=== PATIENT | female | born 1950 | race Two or more races ===

== ENCOUNTER 2016-07-25 10:43 | Inpatient (IN) ==
[2016-07-25] MEDS ORDERED: DUONEB NEB STA ×2 (12:31→13:42)
[2016-07-25] MEDS ORDERED: SOLU-MEDROL 125 MG IVP STA (12:33)
[2016-07-25 13:00] LABS: ABG PH 7.555 (7.35-7.45)
[2016-07-25 13:01] LABS: ABG BASE EXCESS 4 (-2.0-2.0); ABG HCO3 25.9 (22.0-26.0); ABG PCO2 29.3 mmHg (35-45); ABG TCO2 27 (22.0-28.0)
[2016-07-25 13:25] LABS: BASOPHILS % (AUTO) 0.5 % (0.0-3.0); EOSINOPHILS # (AUTO) 0.1 K/ul (0.0-0.7); EOSINOPHILS % (AUTO) 1.2 % (0.0-7.0); HEMATOCRIT 35.1 % (37.0-47.0); HEMOGLOBIN 11.9 g/dl (12.0-16.0); LYMPHOCYTES # (AUTO) 1.9 K/uL (0.60-3.4); LYMPHOCYTES % (AUTO) 46.9 (10.0-50.0); MEAN CORPUSCULAR HEMOGLOBIN 29.6 pg (27.0-31.0); MEAN CORPUSCULAR HGB CONC 33.9 (31.8-35.4); MEAN CORPUSCULAR VOLUME 87.3 fl (81.0-99.0); MONOCYTES # (AUTO) 0.4 K/uL (0.4-2.0); MONOCYTES % (AUTO) 10.2 (0-10); NEUTROPHILS # (AUTO) 1.7 K/ul (2.0-6.9); NEUTROPHILS % (AUTO) 41.2; PLATELET COUNT 184 10^3/uL (140-440); RED BLOOD COUNT 4.02 10^6/ul (4.20-5.40); WHITE BLOOD COUNT 4.01 K/ul (4.6-10.2)
--- NOTE | 2016-07-25 13:42 | CT ---
EXAM: CT chest without contrast HISTORY: Cough COMPARISON: CT chest 07/28/2013 TECHNIQUE: Serial axial images of the chest were obtained from the lung apices to the upper abdomen without contrast. These were viewed in multiple planes. FINDINGS: The thyroid is normal. The visualized vessels are unremarkable without aneurysm or steno sis. The heart is normal in size without pericardial effusion. There are no pathologically enlarge d mediastinal or hilar lymph nodes. There is no pneumothorax or pleural effusion. There is no consolidation, nodule or mass. The airwa ys are patent. There is no abnormal ground-glass. The soft tissues in the upper abdomen demonstrate prior cholecystectomy. Limited views of the soft tissues in the upper abdomen are unremarkable. There is mild degenerative disease of the spine. IMPRESSION: No acute cardiopulmonary process to account for patient's symptoms.
[2016-07-25] MEDS ORDERED: DECADRON 4 MG/ML SDV IM STA (13:46)
[2016-07-25 13:51] LABS: ALANINE AMINOTRANSFERASE 57 U/L (12-78); ALBUMIN 3.5 g/dL (3.4-5.0); ALBUMIN/GLOBULIN RATIO 1.03; ALKALINE PHOSPHATASE 100 U/L (53-141); ANION GAP 13.6; ASPARTATE AMINO TRANSFERASE 42 U/L (15-37); BILIRUBIN,TOTAL 0.33 mg/dL (0.00-1.20); BLOOD UREA NITROGEN 12 mg/dL (7-18); BUN/CREATININE RATIO 18.46; CALCIUM 8.4 mg/dL (8.2-10.2); CARBON DIOXIDE 23 mmol/L (23-31); CHLORIDE 110 mmol/L (98-107); CREATINE KINASE 21 U/L; CREATININE 0.65 mg/dL (0.60-1.30); GLUCOSE 93 mg/dL (82-115); POTASSIUM 3.6 mmol/L (3.5-5.10); SODIUM 143 mmol/L (136-145); TOTAL PROTEIN 6.9 g/dL (5.8-8.1)
[2016-07-25 14:11] LABS: FLU INTERNAL QC INTERNAL QC VALID; RAPID FLU A NEGATIVE (NEGATIVE); RAPID FLU B NEGATIVE (NEGATIVE)
--- NOTE | 2016-07-25 15:08 | ED.PDOC ---
General ED Provider: Dr. ALLA VERONICA Chief Complaint: Shortness of Air Stated Complaint: short of air Time Seen by Physician: 10:45 Mode of Arrival: Walk-In Information Source: Patient Exam Limitations: No limitations Primary Care Provider: YOHANNES CEJA Nursing and Triage Documentation Reviewed and Agree: Yes Respiratory Complaint Exam - Respiratory Complaint/Exam Symptoms Are: Still present Timing: Constant Initial Severity: Moderate Current Severity: Mild Location: Throat, Chest Character: Reports: Dry cough Aggravating: Reports: None Alleviating: Reports: None Associated Signs and Symptoms: Reports: Nasal congestion Related History: Reports: Similar episode History of Healthcare-Acquired Pneumonia: No Related Surgical History: Reports: None Cardiac Risk Factors: Reports: None Pseudomonas Risk Factors: Reports: None Tuberculosis Risk Factors: Reports: None Status Asthmaticus Risk Factors: Reports: None Home Oxygen Use: No Recent Stress Test: No Recent Echo/LV Function: No Current Antibiotic Use: No Current Asthma Medication Use: No Respiratory Distress: None Inadequate Respiratory Effort: No Dysphagia Present: No Stridor Present: No JVD Present: No Accessory Muscle Use: No Retractions: Not Present Diminished Breath Sounds: No Sinus Tenderness: None Differential Diagnoses: Pneumonia, Bronchitis Non-Traumatic Chest Pain Syncope: EKG Performed Review of Systems - Review Of Systems Constitutional: Reports: Malaise, Weakness Eyes: Reports: No symptoms Ears, Nose, Mouth, Throat: Reports: No symptoms Respiratory: Reports: Cough, Short of air, Wheezing Cardiac: Reports: No symptoms GI: Reports: No symptoms : Reports: No symptoms Musculoskeletal: Reports: No symptoms Skin: Reports: No symptoms Neurological: Reports: No symptoms Endocrine: Reports: No symptoms Hematologic/Lymphatic: Reports: No symptoms All Other Systems: Reviewed and Negative Past Medical History - Past Medical History Previously Healthy: Yes Endocrine: Reports: None Cardiovascular: Reports: None Respiratory: Reports: COPD Hematological: Reports: None Gastrointestinal: Reports: None Genitourinary: Reports: None Neuro/Psych: Reports: None Musculoskeletal: Reports: None Cancer: Reports: None Last Menstrual Period: na - Surgical History General Surgical History: Reports: Unknown - Family History Family History: Reports: Unknown - Social History Smoking Status: Never smoker Hx Substance Use: No Alcohol Screening: None - Immunizations Tetanus Shot up to Date: No Physical Exam - Physical Exam Appearance: Well-appearing, No pain distress, Well-nourished Eyes: SAVANA, EOMI, Conjunctiva clear ENT: Ears normal, Nose normal, Oropharynx normal Respiratory: Rhonchi, Wheezes Cardiovascular: RRR, Pulses normal, No rub, No murmur GI/: Soft, Nontender, No masses, Bowel sounds normal, No Organomegaly Musculoskeletal: Normal strength, ROM intact, No edema, No calf tenderness Skin: Warm, Dry, Normal color Neurological: Sensation intact, Motor intact, Reflexes intact, Cranial nerves intact, Alert, Oriented Psychiatric: Affect appropriate, Mood appropriate Critical Care Note - Critical Care Note Total Time (mins): 0 Course - Course Hematology/Chemistry: 07/25/16 12:55 07/25/16 12:55 Orders, Labs, Meds: Lab Review 07/25/16 07/25/16 12:55 13:00 WBC 4.01 L RBC 4.02 L Hgb 11.9 L Hct 35.1 L MCV 87.3 MCH 29.6 MCHC 33.9 RDW Coeff of Elise 14.4 Plt Count 184 Immature Gran % (Auto) 0.0 Neut % (Auto) 41.2 Lymph % (Auto) 46.9 Will % (Auto) 10.2 H Eos % (Auto) 1.2 Baso % (Auto) 0.5 Immature Gran # (Auto) 0.0 Neut # 1.7 L Lymph # 1.9 Will # 0.4 Eos # 0.1 Baso # 0.0 Sodium 143 Potassium 3.6 Chloride 110 H Carbon Dioxide 23 Anion Gap 13.6 BUN 12 Creatinine 0.65 Estimated GFR (MDRD) 91.00 BUN/Creatinine Ratio 18.46 Glucose 93 Lactic Acid 7.5 Calcium 8.4 Total Bilirubin 0.33 AST 42 H ALT 57 Alkaline Phosphatase 100 Total Creatine Kinase 21 Troponin I < 0.0100 Total Protein 6.9 Albumin 3.5 Globulin 3.4 Albumin/Globulin Ratio 1.03 Influenza A (Rapid) Negative Influenza B (Rapid) Negative Orders Category Date Time Status ADMIT PATIENT INPATIENT .TO [facility] (MONITORED BED) ADMISSION 07/25/16 15: 03 Ordered ABG DRAW REQUEST Stat CARDIO 07/25/16 12:30 Completed ABG DRAW REQUEST Stat CARDIO 07/25/16 15:02 Ordered EKG-(ED ONLY) Stat CARDIO 07/25/16 12:30 Completed EKG-(IP & OP ONLY) DAILY CARDIO 07/26/16 06:00 Ordered EKG-(IP & OP ONLY) DAILY CARDIO 07/27/16 06:00 Ordered EKG-(IP & OP ONLY) DAILY CARDIO 07/28/16 06:00 Ordered NEBULIZER TREATMENT Stat CARDIO 07/25/16 12:31 Completed NEBULIZER TREATMENT Stat CARDIO 07/25/16 13:42 Completed NEBULIZER TREATMENT Stat CARDIO 07/25/16 15:05 Ordered OXYGEN Routine CARDIO 07/25/16 15:04 Ordered ACTIVITY .BR with BRP CARE 07/25/16 15:03 Ordered TELEMETRY MONITORING TELE CARE 07/25/16 15:04 Ordered VITAL SIGNS Q8HR CARE 07/25/16 15:03 Ordered ED IV/MEDIPORT/POWERPORT .ONCE EMERGENCY 07/25/16 12:33 Active ABG Stat LAB 07/25/16 12:45 Received ABG Stat LAB 07/25/16 15:02 Ordered BLOOD CULTURE Stat LAB 07/25/16 12:55 Received CBC W/ AUTO DIFF DAILY@0600 LAB 07/26/16 06:00 Ordered CBC W/ AUTO DIFF DAILY@0600 LAB 07/27/16 06:00 Ordered CBC W/ AUTO DIFF DAILY@0600 LAB 07/28/16 06:00 Ordered CBC W/ AUTO DIFF DAILY@0600 LAB 07/29/16 06:00 Ordered CBC W/ AUTO DIFF DAILY@0600 LAB 07/30/16 06:00 Ordered CBC W/ AUTO DIFF DAILY@0600 LAB 07/31/16 06:00 Ordered CBC W/ AUTO DIFF DAILY@0600 LAB 08/01/16 06:00 Ordered CBC W/ AUTO DIFF DAILY@0600 LAB 08/02/16 06:00 Ordered CBC W/ AUTO DIFF DAILY@0600 LAB 08/03/16 06:00 Ordered CBC W/ AUTO DIFF DAILY@0600 LAB 08/04/16 06:00 Ordered CBC W/ AUTO DIFF DAILY@0600 LAB 08/05/16 06:00 Ordered CBC W/ AUTO DIFF DAILY@0600 LAB 08/06/16 06:00 Ordered CBC W/ AUTO DIFF DAILY@0600 LAB 08/07/16 06:00 Ordered CBC W/ AUTO DIFF DAILY@0600 LAB 08/08/16 06:00 Ordered CBC W/ AUTO DIFF DAILY@0600 LAB 08/09/16 06:00 Ordered CBC W/ AUTO DIFF DAILY@0600 LAB 08/10/16 06:00 Ordered CBC W/ AUTO DIFF DAILY@0600 LAB 08/11/16 06:00 Ordered CBC W/ AUTO DIFF DAILY@0600 LAB 08/12/16 06:00 Ordered CBC W/ AUTO DIFF DAILY@0600 LAB 08/13/16 06:00 Ordered CBC W/ AUTO DIFF DAILY@0600 LAB 08/14/16 06:00 Ordered CBC W/ AUTO DIFF Stat LAB 07/25/16 12:55 Completed COMPREHENSIVE METABOLIC PANEL DAILY@0600 LAB 07/26/16 06:00 Ordered COMPREHENSIVE METABOLIC PANEL DAILY@0600 LAB 07/27/16 06:00 Ordered COMPREHENSIVE METABOLIC PANEL DAILY@0600 LAB 07/28/16 06:00 Ordered COMPREHENSIVE METABOLIC PANEL DAILY@0600 LAB 07/29/16 06:00 Ordered COMPREHENSIVE METABOLIC PANEL DAILY@0600 LAB 07/30/16 06:00 Ordered COMPREHENSIVE METABOLIC PANEL DAILY@0600 LAB 07/31/16 06:00 Ordered COMPREHENSIVE METABOLIC PANEL DAILY@0600 LAB 08/01/16 06:00 Ordered COMPREHENSIVE METABOLIC PANEL DAILY@0600 LAB 08/02/16 06:00 Ordered COMPREHENSIVE METABOLIC PANEL DAILY@0600 LAB 08/03/16 06:00 Ordered COMPREHENSIVE METABOLIC PANEL DAILY@0600 LAB 08/04/16 06:00 Ordered COMPREHENSIVE METABOLIC PANEL DAILY@0600 LAB 08/05/16 06:00 Ordered COMPREHENSIVE METABOLIC PANEL DAILY@0600 LAB 08/06/16 06:00 Ordered COMPREHENSIVE METABOLIC PANEL DAILY@0600 LAB 08/07/16 06:00 Ordered COMPREHENSIVE METABOLIC PANEL DAILY@0600 LAB 08/08/16 06:00 Ordered COMPREHENSIVE METABOLIC PANEL DAILY@0600 LAB 08/09/16 06:00 Ordered COMPREHENSIVE METABOLIC PANEL DAILY@0600 LAB 08/10/16 06:00 Ordered COMPREHENSIVE METABOLIC PANEL DAILY@0600 LAB 08/11/16 06:00 Ordered COMPREHENSIVE METABOLIC PANEL DAILY@0600 LAB 08/12/16 06:00 Ordered COMPREHENSIVE METABOLIC PANEL DAILY@0600 LAB 08/13/16 06:00 Ordered COMPREHENSIVE METABOLIC PANEL DAILY@0600 LAB 08/14/16 06:00 Ordered COMPREHENSIVE METABOLIC PANEL Stat LAB 07/25/16 12:55 Completed CREATINE KINASE Q8H LAB 07/25/16 21:15 Ordered CREATINE KINASE Q8H LAB 07/26/16 05:15 Ordered CREATINE KINASE Stat LAB 07/25/16 12:55 Completed LACTIC ACID Stat LAB 07/25/16 12:55 Completed MOLECULAR GROUP A STREP Stat LAB 07/25/16 13:00 Results RAPID FLU A/B Stat LAB 07/25/16 13:00 Completed STREP SCREEN Stat LAB 07/25/16 13:00 Results TROPONIN I Q8H LAB 07/25/16 21:15 Ordered TROPONIN I Q8H LAB 07/26/16 05:15 Ordered TROPONIN I Stat LAB 07/25/16 12:55 Completed 0.9 % Sodium Chloride [Saline Flush] MEDS 07/25/16 12:33 Active 1 syr IVF PRN PRN Dexamethasone 4 mg/ml Inj [Decadron 4 mg/ml Sdv] MEDS 07/25/16 13:46 Discontinued 4 mg IM ONCE STA Ipratropium/Albuterol Neb [Duoneb] MEDS 07/25/16 12:31 Discontinued 1 vial NEB ONCE STA Ipratropium/Albuterol Neb [Duoneb] MEDS 07/25/16 13:42 Discontinued 1 vial NEB ONCE STA Ipratropium/Albuterol Neb [Duoneb] MEDS 07/25/16 18:00 Ordered 1 vial NEB RTQ6H Methylprednisolone Sod Succ/Pf [Solu-Medrol 125 mg] MEDS 07/25/16 21:00 Ordered 60 mg IVP Q8HR Sodium Chloride 0.9% [Sodium Chloride] 1,000 ml MEDS 07/25/16 15:30 Ordered IV 75 mls/hr CT CHEST W/O CONTRAST Stat RADS 07/25/16 12:29 Completed Medications Generic Name Dose Route Start Last Admin Trade Name Freq PRN Reason Stop Dose Admin Albuterol/Ipratropium 1 vial 07/25/16 18:00 Duoneb NEB RTQ6H ISABELA Sodium Chloride 1,000 mls @ 75 mls/hr 07/25/16 15:30 Sodium Chloride IV .[id number] ISABELA Methylprednisolone Sodium Succinate 60 mg 07/25/16 21:00 Solu-Medrol 125 Mg IVP Q8HR ISABELA Sodium Chloride 1 syr 07/25/16 12:33 Saline Flush IVF PRN PRN To flush IV Discontinued Medications Generic Name Dose Route Start Last Admin Trade Name Freq PRN Reason Stop Dose Admin Albuterol/Ipratropium 1 vial 07/25/16 12:31 07/25/16 12:50 Duoneb NEB 07/25/16 12:32 1 vial ONCE STA Administration Albuterol/Ipratropium 1 vial 07/25/16 13:42 07/25/16 13:48 Duoneb NEB 07/25/16 13:43 1 vial ONCE STA Administration Dexamethasone Sodium Phosphate 4 mg 07/25/16 13:46 07/25/16 13:51 Decadron 4 Mg/Ml Sdv IM 07/25/16 13:47 4 mg ONCE STA Administration Vital Signs: Temp Pulse Resp BP Pulse Ox 07/25/16 10:45 99 F 81 22 142/63 H 93 L Departure - Departure Time of Disposition: 15:10 Disposition: ADMITTED INPATIENT Discharge Problem: COPD (chronic obstructive pulmonary disease) Instructions: COPD (Chronic Obstructive Pulmonary Disease) (ED) Condition: Good Pt referred to PMD for follow-up: No Additional Instructions: Please call your Family Physician as soon as possible to schedule a follow-up appointment. Allergies/Adverse Reactions: Allergies codeine Adverse Reaction (Verified 07/25/16 11:02) morphine Adverse Reaction (Verified 07/25/16 11:02) Penicillins Adverse Reaction (Verified 07/25/16 11:02) Sulfa (Sulfonamide Antibiotics) Adverse Reaction (Verified 07/25/16 11:02) Disposition Discussed With: Patient
[2016-07-25] MEDS: SODIUM CHLORIDE 1,000 ML IV SCH (16:20)
[2016-07-25 16:36] VITALS: BMI 34.4
[2016-07-25] MEDS: DUONEB NEB SCH ×2 (17:00→23:04)
[2016-07-25] MEDS ORDERED: PROAIR HFA IH SCH (17:00)
[2016-07-25] MEDS ORDERED: PERCOCET 5-325 PO STA (17:05)
[2016-07-25] MEDS: PRILOSEC PO SCH (17:17)
[2016-07-25] MEDS ORDERED: DIOVAN PO STA (17:36)
[2016-07-25] MEDS ORDERED: NORVASC PO STA (17:36)
[2016-07-25] MEDS ORDERED: PROAIR HFA IH PRN (17:37)
[2016-07-25] MEDS: BUSPAR PO SCH (20:44)
[2016-07-25] MEDS: DESYREL PO SCH (20:44)
[2016-07-25] MEDS: PERCOCET 5-325 PO SCH (20:45)
[2016-07-25] MEDS: XANAX PO SCH (20:46)
[2016-07-25] MEDS: SOLU-MEDROL 125 MG IVP SCH (20:46)
[2016-07-25] MEDS ORDERED: NON-FORMULARY MEDICATION (Buspirone Hcl [Buspirone Hcl] 15 MG) PO SCH (21:00)
[2016-07-25] MEDS ORDERED: NON-FORMULARY MEDICATION (Trazodone Hcl [Trazodone Hcl] 150 MG) PO SCH ×22 (21:00)
[2016-07-25] MEDS ORDERED: NON-FORMULARY MEDICATION (Omeprazole Magnesium [Prilosec Otc] 40 MG) PO SCH (21:00)
[2016-07-25 21:27] LABS: TROPONIN I 0.029 ng/ml (0.0000-0.4000)
[2016-07-26] MEDS ORDERED: TYLENOL PO STA ×2 (02:04→18:11)
[2016-07-26] MEDS: DUONEB NEB SCH ×3 (05:05→17:08)
[2016-07-26] MEDS: SOLU-MEDROL 125 MG IVP SCH ×3 (05:21→21:37)
[2016-07-26] MEDS: PRILOSEC PO SCH ×2 (05:58→16:02)
[2016-07-26 06:53] LABS: HEMATOCRIT 32.9 % (37.0-47.0); HEMOGLOBIN 10.9 g/dl (12.0-16.0); IMMATURE GRANULOCYTE % (AUTO) 0.4 % (0.0-5.0); LYMPHOCYTES # (AUTO) 0.7 K/uL (0.60-3.4); LYMPHOCYTES % (AUTO) 30.9 (10.0-50.0); MEAN CORPUSCULAR HEMOGLOBIN 28.8 pg (27.0-31.0); MEAN CORPUSCULAR HGB CONC 33.1 (31.8-35.4); MONOCYTES # (AUTO) 0.1 K/uL (0.4-2.0); MONOCYTES % (AUTO) 3.4 (0-10); NEUTROPHILS # (AUTO) 1.5 K/ul (2.0-6.9); NEUTROPHILS % (AUTO) 65.3; PLATELET COUNT 168 10^3/uL (140-440); RED BLOOD COUNT 3.78 10^6/ul (4.20-5.40); WHITE BLOOD COUNT 2.33 K/ul (4.6-10.2)
[2016-07-26 07:15] LABS: ALANINE AMINOTRANSFERASE 45 U/L (12-78); ALBUMIN 3.3 g/dL (3.4-5.0); ALBUMIN/GLOBULIN RATIO 1.03; ALKALINE PHOSPHATASE 81 U/L (53-141); ANION GAP 12.9; ASPARTATE AMINO TRANSFERASE 26 U/L (15-37); BILIRUBIN,TOTAL 0.26 mg/dL (0.00-1.20); BLOOD UREA NITROGEN 10 mg/dL (7-18); BUN/CREATININE RATIO 15.62; CALCIUM 8.3 mg/dL (8.2-10.2); CARBON DIOXIDE 22 mmol/L (23-31); CHLORIDE 110 mmol/L (98-107); CREATINE KINASE 30 U/L; CREATININE 0.64 mg/dL (0.60-1.30); GLUCOSE 170 mg/dL (82-115); POTASSIUM 2.9 mmol/L (3.5-5.10); SODIUM 142 mmol/L (136-145); TOTAL PROTEIN 6.5 g/dL (5.8-8.1)
[2016-07-26] MEDS: SODIUM CHLORIDE 1,000 ML IV SCH (07:50)
[2016-07-26] MEDS: DIOVAN PO SCH (08:19)
[2016-07-26] MEDS: PERCOCET 5-325 PO SCH ×2 (08:19→20:46)
[2016-07-26] MEDS: BUSPAR PO SCH ×3 (08:19→20:46)
[2016-07-26] MEDS: NORVASC PO SCH (08:19)
[2016-07-26] MEDS: ZOLOFT PO SCH (08:19)
[2016-07-26] MEDS: XANAX PO SCH ×3 (08:20→20:46)
[2016-07-26] MEDS ORDERED: AMLODIPINE PO SCH (09:00)
[2016-07-26] MEDS ORDERED: VALSARTAN PO SCH (09:00)
[2016-07-26] MEDS ORDERED: K-DUR PO STA (11:51)
[2016-07-26] MEDS ORDERED: POTASSIUM CHLORIDE PREMIX RUN 20 MEQ in PREMIX 100 ML WATER 1 BAG IV STA (11:51)
[2016-07-26] MEDS: DESYREL PO SCH (20:46)
[2016-07-27] MEDS: DUONEB NEB SCH ×5 (00:15→23:14)
[2016-07-27] MEDS: SODIUM CHLORIDE 1,000 ML IV SCH (00:17)
[2016-07-27] MEDS: PRILOSEC PO SCH ×2 (05:30→16:10)
[2016-07-27] MEDS: SOLU-MEDROL 125 MG IVP SCH ×3 (05:31→21:09)
[2016-07-27] MEDS ORDERED: SODIUM CHLORIDE 1,000 ML IV SCH (06:05)
[2016-07-27 06:06] LABS: HEMATOCRIT 33.7 % (37.0-47.0); IMMATURE GRANULOCYTE % (AUTO) 0.7 % (0.0-5.0); LYMPHOCYTES % (AUTO) 10.5 (10.0-50.0); MEAN CORPUSCULAR HEMOGLOBIN 28.8 pg (27.0-31.0); MEAN CORPUSCULAR HGB CONC 32.6 (31.8-35.4); MEAN CORPUSCULAR VOLUME 88.2 fl (81.0-99.0); MONOCYTES # (AUTO) 0.4 K/uL (0.4-2.0); MONOCYTES % (AUTO) 3.6 (0-10); NEUTROPHILS # (AUTO) 8.3 K/ul (2.0-6.9); NEUTROPHILS % (AUTO) 85.2; PLATELET COUNT 175 10^3/uL (140-440); RED BLOOD COUNT 3.82 10^6/ul (4.20-5.40); WHITE BLOOD COUNT 9.69 K/ul (4.6-10.2)
[2016-07-27 06:21] LABS: ALBUMIN 3.2 g/dL (3.4-5.0); ALBUMIN/GLOBULIN RATIO 1.03; ANION GAP 9.7; BILIRUBIN,TOTAL 0.2 mg/dL (0.00-1.20); BUN/CREATININE RATIO 19.35; CALCIUM 8.1 mg/dL (8.2-10.2); CREATININE 0.62 mg/dL (0.60-1.30); POTASSIUM 3.7 mmol/L (3.5-5.10); TOTAL PROTEIN 6.3 g/dL (5.8-8.1)
[2016-07-27] MEDS: NORVASC PO SCH (08:06)
[2016-07-27] MEDS: DIOVAN PO SCH (08:06)
[2016-07-27] MEDS: BUSPAR PO SCH ×3 (08:06→20:04)
[2016-07-27] MEDS: ZOLOFT PO SCH (08:06)
[2016-07-27] MEDS: ROCEPHIN 1 GM in SODIUM CHLORIDE 50 ML IV SCH (08:07)
[2016-07-27] MEDS: XANAX PO SCH ×3 (08:07→20:03)
[2016-07-27] MEDS: PERCOCET 5-325 PO SCH ×2 (08:07→20:03)
[2016-07-27] MEDS: TYLENOL PO PRN ×2 (11:36→19:28)
[2016-07-27] MEDS: DESYREL PO SCH (20:04)
[2016-07-28] MEDS: SOLU-MEDROL 125 MG IVP SCH ×3 (04:58→21:10)
[2016-07-28] MEDS: TYLENOL PO PRN ×2 (04:58→12:27)
[2016-07-28 05:00] LABS: BASOPHILS % (AUTO) 0.1 % (0.0-3.0); HEMATOCRIT 32.8 % (37.0-47.0); HEMOGLOBIN 10.8 g/dl (12.0-16.0); IMMATURE GRANULOCYTE % (AUTO) 1.2 % (0.0-5.0); LYMPHOCYTES # (AUTO) 1.1 K/uL (0.60-3.4); LYMPHOCYTES % (AUTO) 10.7 (10.0-50.0); MEAN CORPUSCULAR HGB CONC 32.9 (31.8-35.4); MEAN CORPUSCULAR VOLUME 88.2 fl (81.0-99.0); MONOCYTES # (AUTO) 0.3 K/uL (0.4-2.0); MONOCYTES % (AUTO) 3.3 (0-10); NEUTROPHILS # (AUTO) 8.3 K/ul (2.0-6.9); NEUTROPHILS % (AUTO) 84.7; PLATELET COUNT 186 10^3/uL (140-440); RED BLOOD COUNT 3.72 10^6/ul (4.20-5.40); WHITE BLOOD COUNT 9.79 K/ul (4.6-10.2)
[2016-07-28] MEDS: DUONEB NEB SCH ×4 (05:11→23:00)
[2016-07-28 05:29] LABS: ALBUMIN 3.2 g/dL (3.4-5.0); ALBUMIN/GLOBULIN RATIO 1.07; ANION GAP 11.4; BILIRUBIN,TOTAL 0.18 mg/dL (0.00-1.20); BUN/CREATININE RATIO 23.18; CALCIUM 8.1 mg/dL (8.2-10.2); CREATININE 0.69 mg/dL (0.60-1.30); POTASSIUM 3.4 mmol/L (3.5-5.10); TOTAL PROTEIN 6.2 g/dL (5.8-8.1)
[2016-07-28] MEDS: PRILOSEC PO SCH (05:38)
[2016-07-28] MEDS: NORVASC PO SCH (08:41)
[2016-07-28] MEDS: BUSPAR PO SCH ×3 (08:42→21:07)
[2016-07-28] MEDS: DIOVAN PO SCH (08:42)
[2016-07-28] MEDS: PERCOCET 5-325 PO SCH ×2 (08:42→21:08)
[2016-07-28] MEDS: XANAX PO SCH ×3 (08:42→21:08)
[2016-07-28] MEDS: ZOLOFT PO SCH (08:43)
[2016-07-28] MEDS: ROCEPHIN 1 GM in SODIUM CHLORIDE 50 ML IV SCH (08:43)
[2016-07-28] MEDS: TUSSIONEX PO SCH ×2 (09:05→21:09)
--- NOTE | 2016-07-28 09:38 | PCM.PROG ---
Attending Provider: ATTENDING PROVIDER: Dr. CAYDEN FITZGERALD DATE OF SERVICE: 07/28/16 SUBJECTIVE: This 66 year old OTHER F was hospitalized 07/25/16. The patient is admitted with COPD exacerbation. She complains of chest soreness due to excessive coughing. The patient has shortness of breath on minimal exertion. REVIEW OF SYSTEMS: CONSTITUTIONAL: No fever, no chills. ENDOCRINE: No weight loss or weight gain. HEENT: No sinus drainage, no sore throat. CVS: Chest soreness from coughing. No angina symptoms. No CHF symptoms. No palpitations. No atypical chest pain for CAD. Shortness of breath on minimal exertion. RESPIRATORY: Cough and congestion. No hemoptysis. GI: No melena. No abdominal pain. No nausea, no vomiting. : No hematuria. No polyuria. SKIN: No rash. No wounds. MUSCULOSKELETAL: No pain. SUPERVISOR DIALS: No blackout, no dizziness. No headache. No double vision. PSYCHIATRIC: Not anxious; no depression. No suicidal thoughts. No homicidal thoughts. PHYSICAL EXAMINATION: GENERAL: Lying in bed in no distress. VITAL SIGNS: Temperature 97 F, Pulse 101, Respiratory Rate 22, BP 148/74, Pulse Ox 95% HEENT: Normocephalic, atraumatic. Mucosa is dry, pallor positive. NECK: No JVP, no carotid bruit. No lymphadenopathy. CARDIAC: S1, S2, no S3. No murmur, gallop or regurgitation. LUNGS: Audible wheeze bilaterally. ABDOMEN: Soft, non-tender. Bowel sounds active. No rigidity, guarding or CVA tenderness. EXTREMITIES: No clubbing, cyanosis or edema. NEUROLOGIC: Awake, alert and oriented x3. LYMPHATIC: No palpable lymph nodes SKIN: Not dry. Intact. MUSCULOSKELETAL: No joint swelling. LAB REVIEW: 07/28/16 04:15 07/28/16 04:15 07/28/16 04:15: WBC 9.79, RBC 3.72 L, Hgb 10.8 L, Hct 32.8 L, MCV 88.2, MCH 29.0 , MCHC 32.9, RDW Coeff of Elise 14.3, Plt Count 186, Immature Gran % (Auto) 1.2, Neut % (Auto) 84.7, Lymph % (Auto) 10.7, [place] % (Auto) 3.3, Eos % (Auto) 0.0, Baso % (Auto) 0.1, Immature Gran # (Auto) 0.1, Neut # 8.3 H, Lymph # 1.1, [place] # 0.3 L, Eos # 0.0, Baso # 0.0, Sodium 142, Potassium 3.4 L, Chloride 110 H, Carbon Dioxide 24, Anion Gap 11.4, BUN 16, Creatinine 0.69, Estimated GFR (MDRD ) 85.00, BUN/Creatinine Ratio 23.18, Glucose 140 H, Calcium 8.1 L, Total Bilirubin 0.18, AST 19, ALT 30, Alkaline Phosphatase 64, Total Protein 6.2, Albumin 3.2 L, Globulin 3.0, Albumin/Globulin Ratio 1.07 ASSESSMENT: 1. COPD exacerbation secondary to bronchitis 2. Status post hypokalemia 3. Hypertension 4. Dyslipidemia 5. Depression and anxiety PLAN: 1. Protonix p.o. daily 2. Hycodan 3. Stop fluids 4. Have the patient up ambulatory 5. PFT 6. Repeat chest x-ray 7. Continue Rocephin, Protonix and Duonebs Plan and coordination of the patient's care discussed in the presence of Bindery Machine Operator and nurse. CONDITION: Stable SCRIBED BY: SADIE RODRIGUEZ Chief Of Service scribed while in presence of service performed by Dr. CAYDEN FITZGERALD on 07/28/16 ([id number])
--- NOTE | 2016-07-28 11:42 | DI ---
EXAM: Two x-rays of the chest. Comparison: CT imaging of the chest performed on the same day. Reason for exam: Cough. FINDINGS: No pneumothorax, pleural effusion, or focal consolidation. There is elevation of the rig ht hemidiaphragm. Surgical clips are seen in the right upper quadrant consistent with gallbladder r emoval. The imaged osseous structures are unremarkable without fracture. Impression: No acute cardiopulmonary process.
--- NOTE | 2016-07-28 13:59 | PN ---
DATE OF SERVICE: 07/27/16 SUBJECTIVE: The patient was admitted with the COPD exacerbation and bronchitis. The patient had severe hypokalemia yesterday which has been replaced with the IV and PO potassium which is better now. Still has some shortness of breath with exertion. REVIEW OF SYSTEMS: CONSTITUTIONAL: No fever, no chills. HEENT: Normal. ENDOCRINE: No weight gain, no weight loss. CVS: No angina symptoms. No CHF symptoms. No palpitations. No atypical chest pain for CAD. No shortness of breath. No PND, no orthopnea. RESPIRATORY: No cough, no hemoptysis. GI: No nausea, no vomiting. No abdominal pain. : No hematuria. No polyuria. MUSCULOSKELETAL:. No joint swelling. PSYCHIATRIC: Not anxious. No depression. No suicidal thoughts. No homicidal thoughts. SKIN: Intact. No rash. PHYSICAL EXAMINATION: V/S: Blood pressure 158/86, respiratory rate 20, heart rate 102 and temperature 97.5. HEENT: Normocephalic, atraumatic. Ears, eyes, nose and throat normal. Mucosa dry. Pallor positive. NECK: Supple. No JVD, no carotid bruit. No lymphadenopathy. LUNGS: Decreased and expiratory wheeze is present. No rales or rhonchi. HEART: S1, S2 normal. No S3. No murmur, gallop or regurgitation. ABDOMEN: Soft, nontender. Bowel sounds active. No rigidity. No rebound or guarding. No CVA tenderness. EXTREMITIES: No clubbing, cyanosis or pedal edema. MUSCULOSKELETAL: No joint swelling. NEUROLOGIC: Awake, alert, oriented times three. No focal deficit. LYMPHATIC: No lymph nodes palpable. SKIN: Intact. LABS: WBC 9.69, hgb 11.0, hct 33.7, plt count 175, sodium 142, potassium 3.7, chloride 112, bicarb 24, BUN 12, creatinine 0.62 and glucose 137. ASSESSMENT: 1. Status post severe hypokalemia 2. COPD exacerbation secondary to the bronchitis 3. Hypertension 4. Dyslipidemia 5. Osteoarthritis 6. Anxiety disorder 7. Depression PLAN: 1. Continue the Rocephin and Azithromycin 2. Tylenol for the pain 3. Out of the bed to chair Will follow the patient in daily rounds. TIME SPENT: More than 30 minutes MTDD
--- NOTE | 2016-07-28 14:03 | HP ---
DATE OF SERVICE: 07/25/16 CHIEF COMPLAINT: Cough and shortness of breath. HISTORY OF PRESENT ILLNESS: This is a 66-year-old female with history of COPD, presented to the Emergency Room with cough, congestion with yellow-green mucus. She has taken an extra breathing treatment but did not help and came to the emergency room, seen by Dr. Kenny. White count was normal. ABG was done which showed pH 7.55, pc02 29.9, BUN and creatine normal. The patient had some Solu-Medrol and breathing treatment. CT chest negative for pneumonia showing emphysematous changes. Despite the treatment, the patient was still short of breath and lots of cough. At that time, the patient is admitted to the hospital for COPD exacerbation secondary to bronchitis for IV antibiotics and IV fluids. REVIEW OF SYSTEMS: CONSTITUTIONAL: Weakness and tiredness. No fever, no chills. HEENT: Normal. ENDOCRINE: No weight gain; no weight loss. CVS: No chest pain. No PND, no orthopnea. No shortness of breath. No PND, no orthopnea. RESPIRATORY: Cough and congestion with yellow-green mucus. No hemoptysis. GI: No nausea, no vomiting. No abdominal pain. No melena. : No hematuria. No polyuria. MUSCULOSKELETAL: No joint swelling. PSYCHIATRIC: Not anxious. No depression. No suicidal thoughts. No homicidal thoughts. SKIN: Intact, no open lesions. PAST MEDICAL HISTORY: Hypertension COPD History of pneumonia GERD Osteoarthritis Depression/anxiety PAST SURGICAL HISTORY: Cataracts removed 2014 Cholecystectomy Hysterectomy with right oophorectomy Right ankle and heel fusion Right femur replacement PERSONAL HISTORY: . Never smoked. No alcohol use. No substance abuse. The patient is visiting the area from her home in [place], [place]. FAMILY HISTORY: Significant for high blood pressure. MEDICATIONS: (HOME) Zoloft Prilosec Buspirone [place] Xanax ProAir Percocet Trazodone ALLERGIES: CODEINE, MORPHINE, PENICILLIN, SULFA PHYSICAL EXAMINATION: V/S: BP 142/63, respiratory rate 22, heart rate 81, temperature 99.0. HEENT: Atraumatic, normocephalic. No scleral icterus. Pallor positive. Mucosa dry. NECK: Supple. No JVD, no bruit. No lymphadenopathy. No thyromegaly. HEART: S1, S2 normal. No murmur. No cyanosis or clubbing. No ascites. LUNGS: Expiratory wheezing and basilar crackles are present. ABDOMEN: Soft, nontender. Bowel sounds are active. No CVA tenderness. No rigidity or guarding. EXTREMITIES: No cyanosis, clubbing or pedal edema. MUSCULOSKELETAL: Normal joints, no swelling. NEUROLOGIC: The patient is awake, alert and oriented times three. SKIN: Intact; no open lesions. LYMPHATIC: No lymph nodes palpable. LABS: Sodium 143, potassium 3.6, chloride 110, bicarb 23, BUN 12, creatinine 0.65, lactic acid 7.5. White count 4.01, hemoglobin 11.9, hematocrit 35.1, platelet count 184. Sodium ASSESSMENT: 1. COPD EXACERBATION SECONDARY TO BRONCHITIS 2. HISTORY OF HYPERTENSION 3. DYSLIPIDEMIA 4. OSTEOARTHRITIS 5. DJD SPINE 6. ANXIETY/DEPRESSION PLAN: 1. Admit the patient to the regular floor 2. CBC, CMP today and daily 3. Cardiac enzymes and troponin 4. Breathing treatments 5. Solu-Medrol 60 mg q.8hr 6. Rocephin 1 gm daily 7. Daily I & O's 8. We will follow the patient in daily rounds TIME SPENT: More than 55 minutes. GINGER
[2016-07-28] MEDS: PROTONIX PO SCH (17:09)
[2016-07-28] MEDS: DESYREL PO SCH (21:08)
[2016-07-29] MEDS: TYLENOL PO PRN (00:33)
[2016-07-29] MEDS: SOLU-MEDROL 125 MG IVP SCH (04:20)
[2016-07-29 04:45] LABS: BASOPHILS % (AUTO) 0.2 % (0.0-3.0); HEMATOCRIT 32.4 % (37.0-47.0); HEMOGLOBIN 10.6 g/dl (12.0-16.0); IMMATURE GRANULOCYTE % (AUTO) 2.2 % (0.0-5.0); LYMPHOCYTES # (AUTO) 1.2 K/uL (0.60-3.4); LYMPHOCYTES % (AUTO) 12.9 (10.0-50.0); MEAN CORPUSCULAR HEMOGLOBIN 28.8 pg (27.0-31.0); MEAN CORPUSCULAR HGB CONC 32.7 (31.8-35.4); MONOCYTES # (AUTO) 0.4 K/uL (0.4-2.0); MONOCYTES % (AUTO) 4.7 (0-10); NEUTROPHILS # (AUTO) 7.2 K/ul (2.0-6.9); PLATELET COUNT 171 10^3/uL (140-440); RED BLOOD COUNT 3.68 10^6/ul (4.20-5.40); WHITE BLOOD COUNT 9.01 K/ul (4.6-10.2)
[2016-07-29 05:02] LABS: ALBUMIN 3.2 g/dL (3.4-5.0); ALBUMIN/GLOBULIN RATIO 1.14; ANION GAP 12.3; BILIRUBIN,TOTAL 0.19 mg/dL (0.00-1.20); BUN/CREATININE RATIO 20.63; CALCIUM 8.2 mg/dL (8.2-10.2); CREATININE 0.63 mg/dL (0.60-1.30); POTASSIUM 3.3 mmol/L (3.5-5.10)
[2016-07-29] MEDS: DUONEB NEB SCH ×2 (05:14→11:16)
[2016-07-29] MEDS: PROTONIX PO SCH (05:51)
[2016-07-29] MEDS ORDERED: K-DUR PO STA (08:02)
[2016-07-29] MEDS: BUSPAR PO SCH (08:08)
[2016-07-29] MEDS: DIOVAN PO SCH (08:09)
[2016-07-29] MEDS: NORVASC PO SCH (08:10)
[2016-07-29] MEDS: TUSSIONEX PO SCH (08:10)
[2016-07-29] MEDS: XANAX PO SCH (08:10)
[2016-07-29] MEDS: PERCOCET 5-325 PO SCH (08:10)
[2016-07-29] MEDS: ZOLOFT PO SCH (08:11)
[2016-07-29] MEDS: ROCEPHIN 1 GM in SODIUM CHLORIDE 50 ML IV SCH (08:20)
[2016-07-29 10:27] VITALS: BP 127/71; TEMP 97
--- NOTE | 2016-07-29 10:59 | PCM.PROG ---
Attending Provider: ATTENDING PROVIDER: Dr. CAYDEN FITZGERALD DATE OF SERVICE: 07/29/16 SUBJECTIVE: This 66 year old OTHER F was hospitalized 07/25/16. The patient states she is doing better. The potassium is normal. Repeat chest x-ray is normal. The patient still has expiratory wheeze, some shortness of breath with exertion, which is normal for the patient. The patient has a followup appointment with her recycle coordinator, Dr. Chaidez. REVIEW OF SYSTEMS: CONSTITUTIONAL: No fever, no chills. ENDOCRINE: No weight loss or weight gain. HEENT: No sinus drainage, no sore throat. CVS: No angina symptoms. No CHF symptoms. No palpitations. No atypical chest pain for CAD. No shortness of breath. RESPIRATORY: No cough, no hemoptysis. GI: No melena. No abdominal pain. No nausea, no vomiting. : No hematuria. No polyuria. SKIN: No rash. No wounds. MUSCULOSKELETAL: No pain. RETAIL SALES LEAD: No blackout, no dizziness. No headache. No double vision. PSYCHIATRIC: Not anxious; no depression. No suicidal thoughts. No homicidal thoughts. PHYSICAL EXAMINATION: GENERAL: Lying in bed in no distress. VITAL SIGNS: Temperature 97.7 F, Pulse 74, Respiratory Rate 18, BP 152/72, Pulse Ox 95% HEENT: Normocephalic, atraumatic. Mucosa is dry, pallor positive. NECK: No JVP, no carotid bruit. No lymphadenopathy. CARDIAC: S1, S2, no S3. No murmur, gallop or regurgitation. LUNGS: Expiratory wheeze with decreased breath sounds. ABDOMEN: Soft, non-tender. Bowel sounds active. No rigidity, guarding or CVA tenderness. EXTREMITIES: No clubbing, cyanosis or edema. NEUROLOGIC: Awake, alert and oriented x3. LYMPHATIC: No palpable lymph nodes SKIN: Not dry. Intact. MUSCULOSKELETAL: No joint swelling. LAB REVIEW: 07/29/16 03:45 07/29/16 03:45 07/29/16 03:45: WBC 9.01, RBC 3.68 L, Hgb 10.6 L, Hct 32.4 L, MCV 88.0, MCH 28.8 , MCHC 32.7, RDW Coeff of Elise 14.4, Plt Count 171, Immature Gran % (Auto) 2.2, Neut % (Auto) 80.0, Lymph % (Auto) 12.9, [place] % (Auto) 4.7, Eos % (Auto) 0.0, Baso % (Auto) 0.2, Immature Gran # (Auto) 0.2, Neut # 7.2 H, Lymph # 1.2, [place] # 0.4, Eos # 0.0, Baso # 0.0, Sodium 142, Potassium 3.3 L, Chloride 108 H, Carbon Dioxide 25, Anion Gap 12.3, BUN 13, Creatinine 0.63, Estimated GFR (MDRD ) 94.00, BUN/Creatinine Ratio 20.63, Glucose 128 H, Calcium 8.2, Total Bilirubin 0.19, AST 20, ALT 33, Alkaline Phosphatase 58, Total Protein 6.0, Albumin 3.2 L, Globulin 2.8, Albumin/Globulin Ratio 1.14 ASSESSMENT: 1. COPD exacerbation secondary to bronchitis 2. Status post hypokalemia 3. Hypertension 4. Dyslipidemia 5. Depression and anxiety PLAN: 1. Potassium 3.3; will give 40 mEq today 2. Lifestyle modifications to include weight loss, diet and exercise discussed with the patient 3. Medrol Dosepak take as directed on package with food 4. Tussionex 5 mL q.12hr p.r.n. cough 5. Antibiotic Keflex 500 mg twice a day for 7 days 6. The patient has appointment as outpatient with recycle coordinator, Dr. Chaidez on 08/04/16 7. Will discharge the patient home today 8. Followup with PMD as soon as possible, (Verona Arauz) Plan and coordination of the patient's care discussed in the presence of Broadcasting Equipment Mechanic and nurse. CONDITION: Stable SCRIBED BY: SADIE RODRIGUEZ, Credit Historian scribed while in presence of service performed by Dr. CAYDEN FITZGERALD on 07/29/16 ([id number])
--- NOTE | 2016-07-29 14:50 | DS ---
DATE OF SERVICE: 07/29/16 FINAL DIAGNOSIS: 1. COPD EXACERBATION SECONDARY TO BRONCHITIS 2. STATUS POST HYPOKALEMIA 3. HYPERTENSION 4. DYSLIPIDEMIA 5. DEPRESSION/ANXIETY 6. ANEMIA MOSTLY ANEMIA OF CHRONIC DISEASE 7. HISTORY OF CATARACT SURGERY 8. TONSILLECTOMY 9. GERD 10. HYSTERECTOMY 11. OSTEOARTHRITIS DISCHARGE INSTRUCTIONS: Discharge the patient home. Followup with PMD within 5 to 7 days. [facility] [employer] , Dr. Chaidez on 08/04/16. Followup with primary care, Verona Gonzales. MEDICATIONS AT DISCHARGE: ProAir Xanax Norvasc [place] Buspirone Hydrocodone Prilosec Cough syrup Oxycodone Zoloft Trazodone NEW PRESCRIPTIONS: Keflex 500 mg twice a day for 7 days Medrol Dosepak Tussionex DIET INSTRUCTIONS: Cardiac and healthy ACTIVITY: As much as tolerated SMOKING: N/A DISEASE SPECIFIC EDUCATION: Pneumonia; need of pneumonia vaccination; anemia; iron tablets and need of colonoscopy discussed with the patient multiple times. Antibiotic use with side effect of diarrhea discussed. HOSPITAL COURSE: Yohana Viveros is a 66-year-old female with a history of COPD came to the emergency room with cough, congestion, diffuse wheezing, seen in the emergency room by Dr. Kenny. ABG showed pH 7.55, pc02 29.3, p02 99. CT of the chest done in the emergency room showed emphysematous changes only. Despite the initial treatment in the emergency room the patient was still having wheezing and shortness of breath. At that time, the patient was admitted to the hospital, started on Rocephin, Azithromycin, Solu-Medrol and Duonebs. Slowly the shortness of breath was controlled. The patient did not have any fever. Saturations were maintained. Repeat x-ray was done which again was negative for pneumonia. The patient did have expiratory wheezing but with minimal exertion the patient was doing fine, did not have any problems. Productive cough was getting better. As the patient improving without any complications she is being discharged home. TIME SPENT: More than 45 to 50 minutes today. MTDD
--- NOTE | 2016-09-04 14:54 | PN ---
DATE OF SERVICE: 07/26/16 SUBJECTIVE: The patient was admitted with COPD exacerbation and bronchitis. Was complaining about some lower back pain. Hgb has dropped from 11.9 to 10.9 probably from the IV fluids. Potassium has dropped to 2.9 today will be replacing it. REVIEW OF SYSTEMS: CONSTITUTIONAL: No fever, no chills. HEENT: Normal. ENDOCRINE: No weight gain, no weight loss. CVS: No angina symptoms. No CHF symptoms. No palpitations. No atypical chest pain for CAD. No shortness of breath. No PND, no orthopnea. RESPIRATORY: No cough, no hemoptysis. GI: No nausea, no vomiting. No abdominal pain. : No hematuria. No polyuria. MUSCULOSKELETAL:. No joint swelling. PSYCHIATRIC: Not anxious. No depression. No suicidal thoughts. No homicidal thoughts. SKIN: Intact. No rash. PHYSICAL EXAMINATION: V/S: Blood pressure 122/68, respiratory 18, heart rate 90 and temperature 97.1. HEENT: Normocephalic, atraumatic. Mucosa dry. Pallor positive. No icterus. NECK: Supple. No JVD, no carotid bruit. No lymphadenopathy LUNGS: Decreased with basilar crackles with some occasional wheezing. No rales or rhonchi. HEART: S1, S2 normal. No S3. No murmur, gallop or regurgitation. ABDOMEN: Soft, nontender. Bowel sounds active. No rigidity. No rebound or guarding. No CVA tenderness. EXTREMITIES: No clubbing, cyanosis or pedal edema. MUSCULOSKELETAL: No joint swelling. NEUROLOGIC: Awake, alert, oriented times three. No focal deficit. LYMPHATIC: No lymph nodes palpable. SKIN: Intact. LABS: Sodium 142, potassium 2.9, chloride 110, bicarb 22, BUN 10, creatinine 0.64, WBC 2.33. hgb 10.9, hct 32.9, plt count 168. ASSESSMENT: 1. COPD exacerbation secondary to the bronchitis 2. Elevated Leukocytosis secondary to the bronchitis 3. Hypokalemia 4. Hypertension 5. Dyslipidemia 6. Osteoarthritis 7. Depression 8. Anxiety disorder PLAN: 1. Continue the Rocephin and Azithromycin 2. DUO NEBS 3. IV fluids 4. Steroids Will follow the patient in daily rounds. TIME SPENT: More than 30 minutes MTDD
== END 2016-07-29 12:11 | disposition home or self-care (01) | DRG 192 ==
LOC: ED 10:43 → MEDSURG B 15:25
PROVIDERS: ADMIT Emergency Medicine; ATTEND Emergency Medicine
DX: J44.0 Chronic obstructive pulmonary disease with (acute) lower respiratory infection (principal); J20.9 Acute bronchitis, unspecified; J44.1 Chronic obstructive pulmonary disease with (acute) exacerbation; R06.02 Shortness of breath; R05 Cough; E87.6 Hypokalemia; I10 Essential (primary) hypertension; E78.5 Hyperlipidemia, unspecified; F41.8 Other specified anxiety disorders; D50.0 Iron deficiency anemia secondary to blood loss (chronic); K21.9 Gastro-esophageal reflux disease without esophagitis; M19.90 Unspecified osteoarthritis, unspecified site; Z79.899 Other long term (current) drug therapy
CPT/HCPCS: 36415; 80053; 82550; 82803; 83605; 84484; 85025; 87040; 87651; 87804; 87880; 93005; 93010; 94640; 96372; 99223; 99233; 99239; 99284